=== PATIENT | male | born 1955 | race Caucasian/White ===

== ENCOUNTER 2019-08-14 14:13 | Inpatient (IN) | payer OTHER, SELFPAY ==
[~2019-08-14] VITALS: Ht 162.6 cm; Wt 60.6 kg
[2019-08-14] MEDS ORDERED: NS 1,000 ML IV ONE (14:45)
[2019-08-14 14:54] LABS: HEMATOCRIT 50.1 % (42.0-52.0); HEMOGLOBIN 17.4 g/dl (13.5-17.5); MEAN CORPUSCULAR HEMOGLOBIN 28.9 pg (27.0-33.0); MEAN CORPUSCULAR HGB CONC 34.7 g/dl (32.0-36.5); MEAN CORPUSCULAR VOLUME 83.2 fl (80.0-96.0); PLATELET COUNT, AUTOMATED 141 10^3/uL (150-450); RED BLOOD COUNT 6.02 10^6/uL (4.30-6.10)
--- NOTE | 2019-08-14 15:06 | REP ---
PORTABLE CHEST X-RAY: SINGLE VIEW. HISTORY: Altered mental status. No comparison chest x-ray. FINDINGS: Monitoring electrodes are seen along with oxygen delivery tubing. There is hazy opacity in the left base with elevation of the left hemidiaphragm consistent with left pleural effusion. Atelectasis in the left lower lobe is suspected. Heart size is borderline. The aorta is somewhat tortuous. IMPRESSION: Moderate hazy opacity left base elevated left hemidiaphragm. Suspect left effusion and atelectasis versus infiltrate left lower lobe. Borderline heart size. Electronically Signed by Fernando Leger MD 08/14/2019 03:10 P
--- NOTE | 2019-08-14 15:17 | REP ---
CT BRAIN WITHOUT CONTRAST: HISTORY: Altered mental status. No comparison brain imaging. 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 The bony calvarium is intact. Visualized paranasal sinuses are clear. There is mild vascular calcification in the distal internal carotid arteries. There is no evidence of intracranial hemorrhage. Minimal generalized atrophy is present. There is no evidence of mass, infarction, extra-axial fluid collection, or midline shift. IMPRESSION: Mild diffuse atrophy. Vascular calcification. Otherwise negative. Electronically Signed by Fernando Leger MD 08/14/2019 03:30 P
[2019-08-14] MEDS ORDERED: AZITHROMYCIN INJ 500 MG, VIAL MATE ADAPTER 1 EACH in D5W 250 ML IV ONE (15:30)
[2019-08-14] MEDS ORDERED: cefTRIAXone SOD 1 GM in D5W MINI-BAG PLUS 50 ML IV ONE (15:30)
[2019-08-14 15:35] LABS: EOSINOPHILS 2 % (0-3); LYMPHOCYTES 5 % (16-44); METAMYELOCYTES 3 % (0-0); MONOCYTES 4 % (0-5); NEUTROPHILS 83 % (28-66)
[2019-08-14 15:37] LABS: PLATELET ESTIMATE NORMAL (NORMAL); TOXIC VACUOLATION 1+
[2019-08-14] MEDS: NS 1,000 ML IV SCH ×2 (15:39→21:59)
[2019-08-14 16:42] LABS: ACETAMINOPHEN LEVEL 2.3 UG/ML (10.0-30.0); ALBUMIN 1.8 GM/DL (3.2-5.2); ALT/SGPT 93 U/L (12-78); BILIRUBIN,DIRECT 0.5 MG/DL (0.0-0.2); BLOOD UREA NITROGEN 168 MG/DL (7-18); CALCIUM LEVEL 10.2 MG/DL (8.8-10.2); CARBON DIOXIDE LEVEL 20 MEQ/L (21-32); CHLORIDE LEVEL 102 MEQ/L (98-107); CK-MB VALUE MASS 39.7 NG/ML (<3.6); CPK CREATINE PHOSPHOKINASE 753 U/L (39-308); CREATININE FOR GFR 1.76 MG/DL (0.70-1.30); ETHYL ALCOHOL (ETHANOL) < 0.003 % (0.000-0.010); GLOMERULAR FILTRATION RATE 41.7 (>49); GLUCOSE, FASTING 103 MG/DL (70-100); MB/CK RELATIVE INDEX 5.27 (< OR =4); POTASSIUM SERUM 4.2 MEQ/L (3.5-5.1); SALICYLATE LEVEL 3.3 MG/DL (5.0-30.0); SODIUM LEVEL 137 MEQ/L (136-145); TOTAL PROTEIN 5.8 GM/DL (6.4-8.2); TROPONIN I < 0.02 NG/ML (< 0.10)
[2019-08-14] MEDS ORDERED: DIGOXIN INJ 0.5 MG/2 ML AMP (J1160) IV ONE ×2 (16:45→19:00)
[2019-08-14] MEDS ORDERED: SODIUM CHLORIDE 0.9% 1000ML IV ONE (16:45)
--- NOTE | 2019-08-14 17:48 | HPEPDOC ---
General Date of Admission Aug 14, 2019 at 16:41 Date of Service: Aug 14, 2019 Chief Complaint The patient is a 64-year-old male admitted with a reason for visit of Pneumonia,Atrial Fibrillation With Rapid Ventricul. Source: RN/, EMS notes reviewed Exam Limitations: Clinical conditions Associated Symptoms: Weakness, Dizziness History of Present Illness 64 year old male with no known medical history was found down on the floor by EMS when they had gone to the patient's house for a welfare check. Patient says he fell yesterday and was not able to get up. He says he has been falling and has fallen about 5 times in the last few days. As per EMS notes patient was diagnosed with Flu about 2 weeks ago. He has not been eating for 5 days only able to drink a little. Yesterday he called for shortness of breath did not come to the hospital today EMS went to his house for check up and found him on the ground at about 1330. He has been feeling dizzy and weak and has fallen sometime during the night. He was found to be in Afib with rvr and was brought to the ED. He was awake and was able to answer simple questions and able to f ollow simple commands. EMS felt he had slurred speech. On my interview he was oriented to place and person and able to answer simple questions. However easily getting tired. Says he lives alone and has no family nearby. There is a number for a Deepthi Mccormick in the chart which he says is his cousin but he says does not have much contact with her. When I called the answer it seemed to be disconnected. He has been taking tylenol and ibuprofen for his flu like symptoms. CT head int ED did not reveal any acute events. CXR showed left basal opacity fluid vs infiltrates. WBC up to 34K, elevated lactate and elevated creatinine. EKG with Afib and rvr. Bp 95/55, pulse in 120s. He was admitted for Pneumonia, sepsis and afib with RVR. Home Medications Unable to Obtain Active Prescriptions or Reported Meds Allergies Coded Allergies: No Known Allergies (Unverified , 08/14/19) Past Medical History Medical History ? hepatitis C pateitn denied any past medical history Family History Significant Family History: No pertinent family hx patient does not know Social History * Smoker: current smoker Alcohol: Denies Drugs: denies A-FIB/CHADSVASC A-FIB History Current/History of A-Fib/PAF?: Yes Current PO Anticoag Therapy: No Review of Systems Constitutional: Reports: Weakness, Fatigue, Lethargy Eyes: Denies: Pain, Vision change ENT: Denies: Head Aches, Ear Pain, Dysphagia Skin: Denies: Rash, Lesions, Breakdown Pulmonary: Denies: Dyspnea, Cough Cardiovascular: Reports: Lt Headedness Gastrointestinal: Reports: Other Symptoms (unable to eat for 1 week); Denies: Nausea, Vomiting, Abdominal Pain, Diarrhea Genitourinary: Denies: Dysuria, Frequency, Incontinence, Retention Hematologic: Denies: Bruising, Bleeding Excessively Neurological: Reports: Weakness Physical Examination General Exam: Positive: Cooperative, No Acute Distress, Other (awake but very weak able to talk only a few words) Eye Exam: Positive: PERRLA, Conjunctiva & lids normal, EOMI; Negative: Sclera icteric ENT Exam: Positive: Atraumatic, Mucous membr. moist/pink, Pharynx Normal Neck Exam: Positive: Supple Chest Exam: Positive: Clear to auscultation, Diminished (at the bases); Negative: Rales, Rhonchi, Wheezing Heart Exam: Positive: Tachycardic, Irregular Rhythm, Normal S1, Normal S2, Murmurs Telemetry: Positive: Atrial fibrillation Abdomen Exam: Positive: BS Hypoactive, Soft, Other (left lobe of liver plapable) Extremity Exam: Positive: Cyanosis (of the big toes, cold extremites), Other (not palpable dorsalis pedis); Negative: Clubbing, Edema Skin Exam: Positive: Other skin issue (cold feet with some mottling of the big toes) Vital Signs Vital Signs Date Time Temp Pulse Resp B/P (MAP) Pulse Ox O2 Delivery O2 Flow Rate FiO2 08/14/19 15:12 160 101/71 08/14/19 14:45 95.8 08/14/19 14:36 16 Laboratory Data Labs 24H Laboratory Tests 2 08/14/19 14:27: Lactic Acid Level 5.3*H 08/14/19 14:38: Immature Granulocyte % (Auto) , Neutrophils (%) (Auto) , Nucleated Red Blood Cells % (auto) 1.3H, Neutrophils 83H, Band Neutrophils 3, Lymphocytes (Manual) 5L, Monocytes (Manual) 4, Eosinophils (Manual) 2, Metamyelocytes 3H, Toxic Vacuolation 1+, Platelet Estimate NORMAL 08/14/19 15:36: Anion Gap 15, Glomerular Filtration Rate 41.7L, Calcium Level 10.2, Total Bilirubin 1.0, Direct Bilirubin 0.5H, Aspartate Amino Transf (AST/SGOT) 267H, Alanine Aminotransferase (ALT/SGPT) 93H, Alkaline Phosphatase 614H, Total Creatine Kinase 753H, Creatine Kinase MB 39.7H, Creatine Kinase MB Relative Index 5.27H, Troponin I < 0.02, Total Protein 5.8L, Albumin 1.8L, Albumin/Globulin Ratio 0.45L, Thyroid Stimulating Hormone (TSH) 4.970H, Salicylates Level 3.3L, Acetaminophen Level 2.3L, Ethyl Alcohol Level < 0.003 CBC/BMP Laboratory Tests 08/14/19 14:38 08/14/19 15:36 Assessment/Plan 64 year old male with no known medical history was found down on the floor by EMS when they had gone to the patient's house for a welfare check. Patient says he fell yesterday and was not able to get up. He says he has been falling and has fallen about 5 times in the last few days. As per EMS notes patient was diagnosed with Flu about 2 weeks ago. He has not been eating for 5 days only able to drink a little. Yesterday he called for shortness of breath did not come to the hospital today EMS went to his house for check up and found him on the ground at about 1330. He has been feeling dizzy and weak and has fallen sometime during the night. He was found to be in Afib with rvr and was brought to the ED. CT head in the ED did not reveal any acute events. CXR showed left basal opacity fluid vs infiltrates. WBC up to 34K, elevated lactate and elevated creatinine. EKG with Afib and rvr. Bp 95/55, pulse in 120s. He was admitted for Pneumonia, sepsis and afib with RVR. Sepsis core temp< 96, tachycardia, elevated wbc. with source of infection in lungs. IVF boluses. Lactacidosis duet o dehydration, sepsis continue IVF. Possible Left lower lobe pneumonia will get CT chest ceftriaxone and azithromycin. Hypotension due to afib with rvr, dehydration, sepsis continue IVF resuscitation, control of heart rate. Afib with RVR rate uncontrolled will give digoxin as BP is low will get echo if rate not controlled with dig will give amiodarone and consult cardiology. CECI due to poor oral intake and dehydration continue IVF no nephrotoxic agents patient has been taking ibuprofen at home. Dehydration as seen by disproportionately elevated BUN relative to creatinine continue IVF. I/O. Recent Flu as per history will check resp panel droplet and contact isolation. Transaminitis with elevated alkaline phosphatase could be due to fall and mild rhabdo but he may have a history of hepatitis C will check hepatitis panel, abdominal US. Severe Protein calorie malnutrition has albumin of 1.8 bitemporal wasting, wasting of small muscles of hand. Plan / VTE VTE Prophylaxis Ordered?: Yes CHELY FUNES MD Aug 14, 2019 17:48
[2019-08-14 18:16] LABS: AMPHETAMINES LEVEL URINE NEGATIVE (NEGATIVE); BARBITURATES URINE NEGATIVE (NEGATIVE); BENZODIAZEPINES URINE NEGATIVE (NEGATIVE); CANNABINOIDS URINE NEGATIVE (NEGATIVE); COCAINE METABOLITE URINE NEGATIVE (NEGATIVE); METHADONE URINE NEGATIVE (NEGATIVE); OPIATES URINE NEGATIVE (NEGATIVE); PHENCYCLIDINE URINE NEGATIVE (NEGATIVE)
[2019-08-14 18:28] LABS: ABG BASE EXCESS -7.1 (-2.0-2.0); ABG HCO3 14.9 MEQ/L (22.0-26.0); ABG O2 SATURATION 96.2 % (95.0-99.0); ABG PARTIAL PRESSURE CO2 22.9 mmHg (35.0-45.0); ABG PARTIAL PRESSURE O2 86.3 mmHg (75.0-100.0); ABG STANDARD HCO3 18.8 MEQ/L (22.0-26.0); ABG TOTAL CO2 15.6 MEQ/L (23.0-31.0); ABG pH (ARTERIAL) 7.431 UNITS (7.350-7.450)
[2019-08-14] MEDS ORDERED: MEROPENEM INJ 1 GM in IV 1 EA IV SCH (19:00)
--- NOTE | 2019-08-14 19:23 | ECGEPIP ---
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
--- NOTE | 2019-08-14 19:58 | REPVR ---
PROCEDURE INFORMATION: Exam: CT Chest Without Contrast Exam date and time: 08/14/2019 7:48 PM Age: 64 years old Clinical indication: Chest pain; Additional info: Pneumonia TECHNIQUE: Imaging protocol: Computed tomography of the chest without contrast. 3D rendering: MIP and/or 3D reconstructed images were created by the technologist. Radiation optimization: All CT scans at this facility use at least one of these dose optimization techniques: automated exposure control; mA and/or kV adjustment per patient size (includes targeted exams where dose is matched to clinical indication); or iterative reconstruction. COMPARISON: NE PORTABLE CHEST X-RAY 08/14/2019 2:33 PM FINDINGS: Lungs: Interstitial prominence. There is consolidation in the left lower lobe with air bronchogram. Pleural space: There is a large freely layering left pleural effusion. There is a minimal right pleural effusion. Heart: No cardiomegaly or pericardial effusion. Aorta: No aneurysmal dilatation of thoracic aorta. Minimal atherosclerosis. Lymph nodes: Due to lack of intravenous contrast and patient's lack of internal body fat evaluation for lymphadenopathy is limited. Liver: There may be a low dense lesion within the left hepatic lobe however is poorly assessed on this noncontrast study.The kidneys are normal. Pancreas: The pancreas is normal. Spleen: The spleen is normal. Adrenals: Prominence of both adrenal glands. Intraperitoneal space: Ascites. Bones/joints: Skeletal degeneration. Soft tissues: Unremarkable. IMPRESSION: There is consolidation left lower lobe with air bronchogram which may be due to pneumonia. There is a large left pleural effusion. A mass and/or subsegmental atelectasis in the left lower lobe cannot be excluded. There may be a lesion in the left lobe of the liver. Ascites is present. Electronically signed by: Perla Watters On 08/14/2019 19:58:41 PM
[2019-08-14 23:20] VITALS: BP 112/62
[2019-08-14] MEDS ORDERED: VANCOMYCIN HCL 1,000 MG, VIAL MATE ADAPTER 1 EACH in D5W 250 ML IV ONE (23:30)
[2019-08-15] MEDS: NS 1,000 ML IV SCH ×2 (03:45→14:08)
[2019-08-15 04:00] VITALS: BP 106/65
[2019-08-15 05:07] LABS: HEMATOCRIT 44.3 % (42.0-52.0); HEMOGLOBIN 15.3 g/dl (13.5-17.5); MEAN CORPUSCULAR HEMOGLOBIN 28.4 pg (27.0-33.0); MEAN CORPUSCULAR HGB CONC 34.5 g/dl (32.0-36.5); MEAN CORPUSCULAR VOLUME 82.3 fl (80.0-96.0); PLATELET COUNT, AUTOMATED 126 10^3/uL (150-450); RED BLOOD COUNT 5.38 10^6/uL (4.30-6.10); WHITE BLOOD COUNT 29.5 10^3/uL (4.0-10.0)
[2019-08-15 05:31] LABS: CREATININE FOR GFR 1.56 MG/DL (0.70-1.30); GLOMERULAR FILTRATION RATE 47.9 (>49); POTASSIUM SERUM 4.3 MEQ/L (3.5-5.1)
[2019-08-15 05:34] LABS: EOSINOPHILS 2 % (0-3); LYMPHOCYTES 3 % (16-44); METAMYELOCYTES 4 % (0-0); MONOCYTES 2 % (0-5); NEUTROPHILS 77 % (28-66); PLATELET ESTIMATE NORMAL (NORMAL)
[2019-08-15 07:40] VITALS: BP 128/76
[2019-08-15] MEDS: GASTROGRAFIN SOLUTION 30ML PO SCH ×2 (07:51→08:49)
[2019-08-15] MEDS ORDERED: ENOXAPARIN 40MG/0.4ML SYRINGE (J1650 PER 10MG) SC SCH (09:00)
[2019-08-15] MEDS ORDERED: VANCOMYCIN HCL 1,000 MG, VIAL MATE ADAPTER 1 EACH in D5W 250 ML IV SCH (09:00)
[2019-08-15] MEDS ORDERED: AZITHROMYCIN 250MG TABLET PO SCH (09:00)
--- NOTE | 2019-08-15 10:07 | REP ---
REASON: Possible liver mass. No prior abdominal or pelvic CTs for comparison. Prior CT of the chest obtained yesterday showed ascites in the imaged upper abdomen and the large left pleural effusion. The lung bases are unchanged. Note is again made of the large left pleural effusion with probable compressive atelectatic change in the left lower lobe. As mentioned in the prior chest CT report, pneumonia and/or mass lesion cannot be ruled out. There is a moderate amount of ascites. There is a micronodular hepatic surface. There is an abnormal caudate to left lobe of the liver ratio. There is pericholecystic fluid consistent with ascites. No gross mass is seen, however, intravenous contrast was withheld and I cannot rule out a mass particularly in the left lobe of the liver. The spleen and pancreas have an unremarkable appearance although seen in a limited fashion. There is bulky paraaortic adenopathy and there is adenopathy throughout the small bowel mesentery. There is bilateral circumferential adrenal gland thickening. There is no evidence of a gross renal mass or hydronephrosis. There is no evidence of intestinal obstruction. CT PELVIS: There is free fluid in the pelvis. There is no evidence of free air. There is urinary bladder distention. There is no evidence of gross pelvic adenopathy. Bone window technique throughout the examination shows the osseous structures to be within normal limits for the patient's age. IMPRESSION: 1. Lung base findings as described above, not significantly changed from yesterday. 2. Evidence to suggest cirrhosis of the liver with other liver findings as described above. If a liver mass is of clinical concern then I would suggest either a contrast enhanced examination or a liver MRI. 3. Moderate ascites. 4. Intra-abdominal and retroperitoneal adenopathy as described above. The findings suggest an infiltrative process such as lymphoma or leukemia. Certainly, other etiologies exist. 5. Other findings as described above. Electronically Signed by Andres Gibbs DO 08/15/2019 11:10 A
[2019-08-15] MEDS: MEROPENEM INJ 1 GM in IV 1 EA IV SCH ×2 (10:15→22:45)
[2019-08-15 12:34] VITALS: BP 107/42
[2019-08-15 16:00] VITALS: BP 110/44
[2019-08-15] MEDS ORDERED: cefTRIAXone SOD 2 GM in D5W MINI-BAG PLUS 50 ML IV SCH (16:00)
--- NOTE | 2019-08-15 18:44 | IPNPDOC ---
Subjective Date Seen The patient was seen on 08/15/19. Subjective Chief Complaint/HPI Continues to be very weak and tired discussed about thoracocentesis understands but wants to think about it. Has good oral fluid intake but not much solid intake. Having acute urinary retention Objective Physical Examination General Exam: Positive: Alert, Cooperative, No Acute Distress, Other ( very weak able to talk only a few words) Eye Exam: Positive: PERRLA, Conjunctiva & lids normal, EOMI; Negative: Sclera icteric ENT Exam: Positive: Atraumatic, Mucous membr. moist/pink, Pharynx Normal Neck Exam: Positive: Supple Chest Exam: Positive: Clear to auscultation, Diminished (at the bases); Negative: Rales, Rhonchi, Wheezing Heart Exam: Positive: Tachycardic, Irregular Rhythm, Normal S1, Normal S2, Murmurs Telemetry: Positive: Atrial fibrillation Abdomen Exam: Positive: BS Hypoactive, Soft, Other (left lobe of liver plapable) Extremity Exam: Negative: Clubbing, Edema Psych Exam: Positive: Oriented x 3 Assessment /Plan Assessment 64 year old male with PMH of hypertension, hyothyroid, hepatits c treated in 2004 and 2011, cirrhosis of liver last seen by Dr Collins in 2018 then did not go for any follow up was found down on the floor by EMS when they had gone to the patient's house for a welfare check. Patient says he fell yesterday and was not able to get up. He says he has been falling and has fallen about 5 times in the last few days. As per EMS notes patient was diagnosed with Flu about 2 weeks ago. He has not been eating for 5 days only able to drink a little. Yesterday he called for shortness of breath did not come to the hospital today EMS went to his house for check up and found him on the ground at about 1330. He has been feeling dizzy and weak and has fallen sometime during the night. He was found to be in Afib with rvr and was brought to the ED. CT head in the ED did not reveal any acute events. CXR showed left basal opacity fluid vs infiltrates. WBC up to 34K, elevated lactate and elevated creatinine. EKG with Afib and rvr. Bp 95/55, pulse in 120s. He was admitted for Pneumonia, sepsis and afib with RVR. Sepsis core temp< 96, tachycardia, elevated wbc. with source of infection in lungs. continue meropenem MRSA pcr neg Lactacidosis duet o dehydration, sepsis, cirrhosis. continue IVF. Possible Left lower lobe pneumonia with pleural effusion will schedule to pleural tap. Hypotension due to afib with rvr, dehydration, sepsis now improved. Paroxysmal Afib with RVR and intermittent A flutter. Now in sinus rhythm will get echo will discuss with anticoagulation. will not start now as will need procedures. CECI due to poor oral intake and dehydration possible obstructive uropathy had 750 cc out on placement of narayanan. continue IVF no nephrotoxic agents patient has been taking ibuprofen at home. Dehydration as seen by disproportionately elevated BUN relative to creatinine, elevated HB continue IVF. I/O. Acute urinary retention with overflow incontinence narayanan placement produced 750 cc will continue narayanan cath Recent Flu as per history patient told me he had a teleconferance with a doctor and was told he had the flu. He had called because he was falling for the past 2 weeks resp panel neg droplet isolation. Transaminitis with elevated alkaline phosphatase could be due to fall and mild rhabdo cirrhosis of liver with h/o hepatitis C CT abdomen shows ascites and micronodular liver a with prominent left lobe. mass could not be seen in this non contrast study. Decompensated Cirrhosis of liver with ascites, severe hypoalbuminemia, thrombocytopenia. from hepatitis C Hepatitis C treated in 2004 and 2012 In 2011 he was treated at [facility] with interferon and ribavarin for 1.5 years and was told he was cured EX IV drug user Severe Protein calorie malnutrition has albumin of 1.8 bitemporal wasting, wasting of small muscles of hand. Plan/VTE VTE Prophylaxis Ordered?: Yes VS, I&O, 24H, Fishbone Vital Signs/I&O Vital Signs Date Time Temp Pulse Resp B/P (MAP) Pulse Ox O2 Delivery O2 Flow Rate FiO2 08/15/19 16:00 97.5 104 19 110/44 (66) 96 Room Air I&O- Last 24 Hours up to 6 AM 08/15/19 06:00 Intake Total 4410 ml Output Total 325 ml Balance 4085 ml Laboratory Data 24H LABS Laboratory Tests 2 08/14/19 20:52: Lactic Acid Followup at 4 Hours 3.8*H 08/15/19 00:31: Methicillin-Resist S.aureus DNA PCR NOT DETECTED 08/15/19 04:57: Immature Granulocyte % (Auto) , Neutrophils (%) (Auto) , Nucleated Red Blood Cells % (auto) 1.3H, Neutrophils 77H, Band Neutrophils 12H, Lymphocytes (Manual) 3L, Monocytes (Manual) 2, Eosinophils (Manual) 2, Metamyelocytes 4H, Red Blood Cell Morphology NORMAL, Platelet Estimate NORMAL, Anion Gap 13, Glomerular Filtration Rate 47.9L, Calcium Level 10.0, Lactate Dehydrogenase 1325H 08/15/19 08:34: Ammonia 57H 08/15/19 11:32: Bedside Glucose (Misc Panel) 150H CBC/BMP Laboratory Tests 08/15/19 04:57 Microbiology Microbiology 08/14/19 Respiratory Virus Panel (PCR) (JUNIOR) - Final, Complete CHELY FUNES MD Aug 15, 2019 18:44
[2019-08-15] MEDS ORDERED: SLF 3 ML SYR IV PRN (19:00)
[2019-08-15 20:00] VITALS: BP 109/61
[2019-08-15] MEDS: SLF 3 ML SYR IV SCH (22:45)
[2019-08-16] VITALS: BP 102/64
[2019-08-16 04:00] VITALS: BP 120/65
[2019-08-16 04:58] LABS: HEMATOCRIT 48.1 % (42.0-52.0); HEMOGLOBIN 16.7 g/dl (13.5-17.5); MEAN CORPUSCULAR HEMOGLOBIN 28.9 pg (27.0-33.0); MEAN CORPUSCULAR HGB CONC 34.7 g/dl (32.0-36.5); MEAN CORPUSCULAR VOLUME 83.4 fl (80.0-96.0); PLATELET COUNT, AUTOMATED 123 10^3/uL (150-450); RED BLOOD COUNT 5.77 10^6/uL (4.30-6.10)
[2019-08-16 05:00] LABS: WHITE BLOOD COUNT 30.6 10^3/uL (4.0-10.0)
[2019-08-16 05:18] LABS: EOSINOPHILS 2 % (0-3); LYMPHOCYTES 6 % (16-44); METAMYELOCYTES 3 % (0-0); MONOCYTES 2 % (0-5); NEUTROPHILS 84 % (28-66)
[2019-08-16 05:19] LABS: ANISOCYTOSIS 1+; PLATELET ESTIMATE NORMAL (NORMAL)
[2019-08-16 05:20] LABS: POLYCHROMASIA 1+
[2019-08-16 05:37] LABS: CALCIUM LEVEL 10.3 MG/DL (8.8-10.2); CREATININE FOR GFR 1.6 MG/DL (0.70-1.30); GLOMERULAR FILTRATION RATE 46.6 (>49); POTASSIUM SERUM 4.3 MEQ/L (3.5-5.1)
[2019-08-16] MEDS: SLF 3 ML SYR IV SCH ×3 (05:55→22:23)
--- NOTE | 2019-08-16 06:18 | ECHO ---
DATE OF PROCEDURE: 08/15/2019 DATE OF : 1955 AGE: 64 GENDER: Male. HEIGHT: 64 inches WEIGHT: 125 pounds BODY SURFACE AREA: 1.61 meters squared INPATIENT: PCU - Room 3216 REFERRING PHYSICIAN: Dr. Lexi Mora INDICATION: Cardiac dysrhythmias. MEASUREMENTS 2-D Measurements: RV: 3.0 cm LV: 3.6 cm Septum: 1.0 cm Posterior wall: 1.0 cm LVEF: 65% Doppler Measurements: AV: 1.4 m/s LVOT: 0.97 m/s MV - E 51 A - Early mitral deceleration time: 127 ms PV: 1.1 m/s Pulmonary artery acceleration time: 109 ms PASP: 30 mmHg IVC: 1.5 cm COMMENTS: Underlying atrial fibrillation with somewhat rapid ventricular response. No intraventricular conduction disturbance. Technically difficult study in light of the patient's chest configuration. Very limited images were possible and only from the subcostal projection. The left ventricle appeared to be normal in size with normal wall thickness and normal wall motion allowing for his rapid ventricular response to atrial fibrillation. Could not visualize his left atrium well to make precise a measurement, but it did not appear to be enlarged. The right ventricle appeared to be of normal size with normal wall motion and the right atrium also did not appear to be enlarged. His inferior vena cava was of normal size with adequate respiratory collapse. Could not visualize his valvular structures well, but the mitral and tricuspid valves did not appear to be significantly abnormal. Color flow Doppler showed very mild to mild tricuspid and no more than trace mitral insufficiency. No pericardial effusion. If further detail is required, would recommend a transesophageal echocardiogram.
[2019-08-16 08:00] VITALS: BP 82/60
[2019-08-16] MEDS ORDERED: AMIODARONE HCL 150 MG in IV 1 EA IV STA (08:28)
[2019-08-16] MEDS ORDERED: DIGOXIN INJ 0.5 MG/2 ML AMP (J1160) IV ONE (08:30)
[2019-08-16] MEDS ORDERED: AMIODARONE HCL 150 MG in IV 1 EA IV ONE (09:00)
[2019-08-16] MEDS: MEROPENEM INJ 1 GM in IV 1 EA IV SCH ×2 (09:52→22:23)
[2019-08-16] MEDS: NS 1,000 ML IV SCH ×2 (09:52→20:29)
[2019-08-16 11:32] LABS: HEPATITIS B CORE ANTIBODY IGM NEGATIVE (NEGATIVE); HEPATITIS B SURFACE ANTIGEN NEGATIVE (NEGATIVE); HEPATITIS C VIRUS ABY INDEX > 11.0 INDEX (<0.8)
[2019-08-16 12:00] VITALS: BP 114/57
[2019-08-16] MEDS: AMIODARONE 200 MG TAB (PACERONE) PO SCH ×3 (13:39→23:27)
[2019-08-16 16:00] VITALS: BP 126/61
[2019-08-16 20:00] VITALS: BP 119/70
[2019-08-17] VITALS (26 sets, daily range): BP systolic 82–119; BP diastolic 50–69
[2019-08-17] MEDS ORDERED: METOPROLOL TART 25 MG TABLET PO ONE (01:00)
[2019-08-17] MEDS ORDERED: METOPROLOL 5 MG/5 ML VIAL IV SCH (01:00)
[2019-08-17] MEDS ORDERED: DIGOXIN INJ 0.5 MG/2 ML AMP (J1160) IV ONE (02:00)
[2019-08-17] MEDS: AMIODARONE 200 MG TAB (PACERONE) PO SCH ×3 (05:14→17:53)
[2019-08-17] MEDS: SLF 3 ML SYR IV SCH ×3 (05:15→22:00)
[2019-08-17] MEDS: NS 1,000 ML IV SCH ×2 (07:09→15:40)
[2019-08-17] MEDS: DOXYCYCLINE HYCLATE 100 MG in D5W MINI-BAG PLUS 100 ML IV SCH ×2 (08:07→23:01)
[2019-08-17 08:17] LABS: HEMATOCRIT 48.8 % (42.0-52.0); HEMOGLOBIN 16.6 g/dl (13.5-17.5); MEAN CORPUSCULAR HEMOGLOBIN 28.7 pg (27.0-33.0); MEAN CORPUSCULAR VOLUME 84.3 fl (80.0-96.0); PLATELET COUNT, AUTOMATED 125 10^3/uL (150-450); RED BLOOD COUNT 5.79 10^6/uL (4.30-6.10)
[2019-08-17 08:32] LABS: EOSINOPHILS 5 % (0-3); LYMPHOCYTES 3 % (16-44); METAMYELOCYTES 3 % (0-0); MONOCYTES 2 % (0-5); NEUTROPHILS 82 % (28-66)
[2019-08-17 08:33] LABS: PLATELET ESTIMATE DECREASED (NORMAL)
[2019-08-17 08:35] LABS: CALCIUM LEVEL 9.9 MG/DL (8.8-10.2); CREATININE FOR GFR 1.9 MG/DL (0.70-1.30); GLOMERULAR FILTRATION RATE 38.2 (>49); POTASSIUM SERUM 4.9 MEQ/L (3.5-5.1)
[2019-08-17] MEDS: MEROPENEM INJ 1 GM in IV 1 EA IV SCH (11:56)
--- NOTE | 2019-08-17 12:33 | IPNPDOC ---
Text Note Date of Service The patient was seen on 08/17/19. NOTE Subjective: Patient continues to be confused, but follows commands. He is not oriented in place. Overnight patient developed atrial fibrillation with RVR. Objective: General: Cachectic, ill looking male VITAL SIGNS: Please see below. HEENT: NCAT, icterus, IMTIAZ NECK: supple, no JVD CARDIOVASCULAR EXAMINATION: NS1S2 RESPIRATORY EXAMINATION: mild rhonchi bilaterally, diminished lung sounds over left lung ABDOMINAL EXAMINATION: Distended, nontender EXTREMITIES: no cyanosis, clubbing, edema SKIN: Papular rash over his chest NEUROLOGICAL EXAMINATION: Nonfocal, moves 4 limbs, no nuchal rigidity Assessment and plan: Patient is 64 years old male with past history of hypertension, hypothyroid, hepatitis C treated in 2003 and 2011, cirrhosis of the liver presented hospital with sepsis and altered mental status. Patient was found to have left lung pleural effusion, moderate ascites and leukocytosis. Also patient developed atrial fibrillation with rapid ventricular rate, amiodarone started. Sepsis Most likely secondary to pneumonia versus empyema versus spontaneous bacterial peritonitis. Patient has persistent leukocytosis. High possibility of empyema or SBP. CT abdomen and pelvis showed moderate ascites. Intra-abdominal and retroperitoneal adenopathy. The findings suggest an infiltrative process such as lymphoma or leukemia. CT chest shows consolidation left lower lobe with air bronchogram which may be due to pneumonia. There is a large left pleural effusion. A mass and/or subsegmental atelectasis in the left lower lobe cannot be excluded. There may be a lesion in the left lobe of the liver. I will discuss with Dr. Richards pleuracentesis Patient will need paracentesis on Monday Continue meropenem, I added doxycycline to cover atypicals Blood culture Lactic acidosis Secondary to sepsis Large left pleural effusion Could be secondary to empyema or cirrhosis or malignancy Will discuss with Dr. Richards pleuracentesis Atrial fibrillation with rapid ventricular rate Dr. Hannah recommended to start amiodarone Heart rate is under control We will hold anticoagulation due to possible paracentesis and pleuracentesis Hypotension Resolved CECI Most likely patient developed hepatorenal syndrome secondary to liver cirrhosis. Patient has refractory ascites. I will discuss with runner man albumin infusion and octreotide to improve kidney perfusion Dehydration Patient intramuscular depleted secondary to cirrhosis Will continue gentle IV hydration Ascites Secondary to cirrhosis versus malignancy Patient will need paracentesis There is possibility for spontaneous bacterial peritonitis We will continue treatment with antibiotics We will check alpha-fetoprotein, CEA, CA 19-9 Intraperitoneal lymphadenopathy Be secondary to malignancy versus infection Patient will need biopsy of lymph node LDH and alkaline phosphatase significantly elevated Elevated liver enzymes Multifactorial, due to liver cirrhosis, malignancy, infection Cirrhosis Secondary to hepatitis C and EtOH abuse See above Severe Protein calorie malnutrition Poor intake, hypoalbuminemia bitemporal wasting, wasting of small muscles of hand. Papular rash Most likely patient developed molluscum contagiosum secondary to immunocompromised status I will check patient for HIV given history of IV drug abuse Metabolic encephalopathy Multifactorial, secondary to sepsis, possible hepatorenal syndrome Ammonia level is elevated Lactulose VS,Fishbone, I+O VS, Fishbone, I+O Laboratory Tests 08/17/19 07:58 Vital Signs Date Time Temp Pulse Resp B/P (MAP) Pulse Ox O2 Delivery O2 Flow Rate FiO2 08/17/19 07:59 96.7 90 20 108/67 (81) 93 Room Air I&O- Last 24 Hours up to 6 AM 08/17/19 06:00 Intake Total 2038 ml Output Total 600 ml Balance 1438 ml DIETER HOLGUIN DO Aug 17, 2019 12:33
[2019-08-17] MEDS: LACTULOSE 20 GM/30 ML SYRUP UD PO SCH (13:29)
[2019-08-17] MEDS ORDERED: flumazeniL 0.5 MG/5 ML VIAL As Ordered ONE (14:04)
[2019-08-17] MEDS ORDERED: MIDAZOLAM INJ 2MG/2ML VIAL (J2250 PER 1MG) As Ordered ONE (14:04)
[2019-08-17] MEDS ORDERED: LIDOCAINE 1% MDV 20ML VIAL As Ordered ONE (14:05)
[2019-08-17 14:19] LABS: ALBUMIN 1.5 GM/DL (3.2-5.2); BILIRUBIN,TOTAL 0.6 MG/DL (0.2-1.0); CALCIUM LEVEL 10.2 MG/DL (8.8-10.2); CREATININE FOR GFR 1.94 MG/DL (0.70-1.30); GLOMERULAR FILTRATION RATE 37.3 (>49); POTASSIUM SERUM 4.9 MEQ/L (3.5-5.1); TOTAL PROTEIN 5.5 GM/DL (6.4-8.2)
[2019-08-17] MEDS ORDERED: flumazeniL 0.5 MG/5 ML VIAL IV ONE (15:00)
[2019-08-17] MEDS ORDERED: MIDAZOLAM INJ 2MG/2ML VIAL (J2250 PER 1MG) IV ONE (15:00)
[2019-08-17] MEDS ORDERED: LIDOCAINE 1% MDV 20ML VIAL IM ONE (15:00)
--- NOTE | 2019-08-17 15:07 | REP ---
REASON: Status post chest tube insertion. COMPARISON: Preprocedural exam of 08/14/2019. There is a left-sided thoracotomy tube in place. There is a minimal discoid opacity in the left midlung zone with a few minimal left retrocardiac streaky opacities. The lung odonnell are otherwise clear. The heart is not enlarged, and the pleural angles are sharp. There is no evidence of a pneumothorax. The osseous structures are stable and intact. IMPRESSION: Likely subsegmental atelectatic changes left lung, as described above. Electronically Signed by Andres Gibbs DO 08/17/2019 03:14 P
--- NOTE | 2019-08-17 15:34 | CR ---
DATE OF CONSULTATION: 08/17/2019 The patient is seen at the urgent request of Dr. Sharif of the hospitalist service for a pleural effusion. I have tried to interview the patient. He is essentially nonverbal and noncommunicative. 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 He can give me no history at all. From what history there is, I gleaned from the chart. HISTORY OF PRESENT ILLNESS: The patient is a 64-year-old white male with a past medical history of hypertension, hypothyroidism, hepatitis C treated in both 2003 and 2011 and cirrhosis of the liver. He was last seen by his primary care provider, Dr. Collins, in 2018. Evidently, emergency medical services (EMS) went to his home for a "welfare check." He was found on the floor. History taken at the time of admission states that he was feeling dizzy and weak and had fell throughout the night prior to admission. He evidently called emergency medical services (EMS) for shortness of breath but did not come to the hospital the day before he was found. He was found to be in atrial fibrillation with rapid ventricular response by EMS and brought to the emergency room. CT of his head did not reveal any acute injury. His white count on admission was 34,000 and decreased to 30,000 yesterday and 25,000 today. He is on meropenem as an antibiotic, along with amiodarone for his atrial fibrillation. PAST MEDICAL HISTORY: As per the history of present illness. MEDICATIONS: At home: None listed. ALLERGIES: None known. SURGERIES: None known. OCCUPATIONAL HISTORY: Unknown. EXPOSURES: Unknown. HABITS: Unknown, although there is mention of alcohol abuse and is a current smoker. FAMILY HISTORY: Not obtainable. REVIEW OF SYSTEMS: Not obtainable. PHYSICAL EXAMINATION: A cachectic, white male, noncommunicative, looking very weak and chronically ill. He does not seem to be in respiratory distress. VITAL SIGNS: Temperature is 96.8 with a heart rate of 90 to 118 in atrial fibrillation, blood pressure 113/59, respiratory rate of 20 without the use of accessory muscles, who is 93% saturated on room air. HEAD: Normocephalic. EYES: Sclerae yellow. Pupils are equal, round and reactive to light. Extraocular movements are intact. NOSE: Without deformity. MOUTH: Shows mucous membranes to be dry and pink. I do not note any blistering in his mouth. He has his own teeth, which look to be in poor repair. NECK: Supple. There is no jugular venous distention (JVD). No subcutaneous emphysema. Trachea is midline. There is no lymphadenopathy. LUNGS: Decreased breath sounds on the left side. It is a difficult lung examination as he is barely able to sit up. I could not percuss him. CARDIAC: No murmurs, clicks, gallops or rubs. His point of maximum impulse (PMI) is in the fifth intercostal space in the mid clavicular line. S1, S2 normal. ABDOMEN: Soft, nontender. Bowel sounds positive. There is no hepatomegaly. I was not able to test for costovertebral angle tenderness. EXTREMITIES: No pretibial edema. No calf tenderness. No differential swelling of the upper extremities. SKIN: Covered with a blistering rash, which looks papular but does not look as if there is pus underneath the blisters. They are evenly distributed throughout his body on his trunk, extremities, head and neck. NEUROLOGIC: II through XII grossly intact. Gross motor and gross sensation intact, although he is very weak. PSYCHIATRIC: He is noncommunicative. He is only oriented to person by giving me his first name, but not to place or time. LABORATORY DATA: His white count today is 25.0 with a hemoglobin and hematocrit of 16 and 48.8. Platelet count is 125. Differential shows 82% neutrophils, 5% bands, 3% lymphocytes, 2% monocytes, 5 eosinophils, along with 3 metamyelocytes. He had 1+ toxic granulations on admission of 148. Electrolytes today show a total CO2 of 18 with a BUN and creatinine of 188 and 1.94 and a glucose of 123. Lactic acid this morning is 3.8 with a calcium of 10.2 and albumin of 1.5. Corrected calcium for albumin is 12.2, making him hypercalcemic. His AST and ALT are 372 and 177, respectively with an alkaline phosphatase of 1057. His alcohol level was canceled on admission for some reason. Blood gases on 08/14/2019 showed pH of 7.474, pCO2 of 22, pO2 of 86, base excess of -7. Urinalysis showed negative leukocyte esterase with only 1 white cell per high powered field. HIV antibody is pending. His hepatitis antibody is greater than 11, which is positive. His chest x-ray done on admission shows a diffuse haze over the left hemithorax. CT scan done following the chest x-ray confirms a large pleural effusion. There is some basilar atelectasis on the right side. There is lung compression of the lower lobe. He has significant ascites, both right and left sides. More impressively, there is a hypodense lesion in the left lobe of the liver, it is a subtle finding but nonetheless notable. His right adrenal has a normal configuration, although a little hypertrophied, as does his left adrenal. His liver edge is a bit lumpy/bumpy, consistent with possible cirrhosis. IMPRESSION: 1. Left pleural effusion. 2. Probable liver cirrhosis. 3. Blistering rash, perhaps pemphigus. 4. History of hepatitis C. 5. Sepsis with lactic acidosis. 6. Acute kidney injury and renal failure. 7. Leukocytosis, unknown origin, maybe empyema, but I have my doubts. 8. Prior alcohol abuse. 9. Tobacco abuse. 10. Syncope by history. 11. Hypothyroidism by history. 12. Hypertension. PLAN/DISCUSSION: I will immediately drain his chest. The patient is noncommunicative and cannot answer any of my questions and I will do this without consent as I consider it an urgent procedure. There is no known family. We will send specimens for requisite cytologies, hematologies, bacteriologies, and chemistries. I am concerned about the rash. This could represent pemphigus. I have spoken to Dr. Sharif, his hospitalist physician, and they are ruling out AIDS, but he thinks that it could also be molluscum contagiosum. Until we known exactly what this rash represents, I will place him on skin isolation precautions. We cannot obtain a sexual history from him.
[2019-08-17 15:55] LABS: PH BODY FLUID 7.554 UNITS (NOT ESTABLISHED); SOURCE, BODY FLUID pH PLEURAL
[2019-08-17] MEDS ORDERED: NS 1,000 ML IV ONE ×4 (16:00→22:30)
[2019-08-17] MEDS: MIDODRINE 5 MG TAB PO SCH (16:05)
[2019-08-17 16:14] LABS: APPEARANCE, BODY FLUID HAZY (CLEAR); PLEURAL FL COLOR YELLOW (COLORLESS); SOURCE, BODY FLUID PLEURAL
[2019-08-17 16:38] LABS: AMYLASE, BODY FLUID 18 U/L (NOT ESTABLISHED); CHOLESTEROL, BODY FLUID < 50 MG/DL (NOT ESTABLISHED); LDH, BODY FLUID 271 U/L (NOT ESTABLISHED); SOURCE, BODY FLUID ALBUMIN PLEURAL; SOURCE, BODY FLUID AMYLASE PLEURAL; SOURCE, BODY FLUID CHOL PLEURAL; SOURCE, BODY FLUID GLUCOSE PLEURAL; SOURCE, BODY FLUID LDH PLEURAL; SOURCE, BODY FLUID TOT PROTEIN PLEURAL; SOURCE, BODY FLUID TRIG PLEURAL; TOTAL PROTEIN, BODY FLUID 3.1 G/DL (NOT ESTABLISHED); TRIGLYCERIDE, BODY FLUID 45 MG/DL (NOT ESTABLISHED)
--- NOTE | 2019-08-17 19:29 | CR ---
DATE OF CONSULTATION: 08/17/2019 REQUESTING PHYSICIAN: Dr. Shashank Sharif. CONSULTING PHYSICIAN: Dr. Salinas. REASON FOR CONSULTATION: Management of acute renal failure. CHIEF COMPLAINT: The patient was brought by Emergency Medical Services on 08/14/2019 because he was found unconscious on the floor. NOTE: History was obtained from the medical team and from patient's chart. The patient himself is obtunded and unable to provide any reliable history. HISTORY OF PRESENT ILLNESS: Mr. Jass Mccormick is a 64-year-old male with a past medical history of hepatitis C virus (HCV) cirrhosis. He was brought to the emergency room (ER) by EMS. Apparently, the patient's family friend called EMS for as welfare check and when they went to his home, he was found on the floor. On arrival to the emergency room after initial resuscitation, the patient reported that he was feeling dizzy and weak and he had fallen to the floor and he was unable to get up. Later investigation showed that the patient also had a large left-sided pleural effusion. He also got a CAT scan of the abdomen done, which showed cirrhosis of the liver with a possible mass in the left lobe of the liver. He was also found to have intra-abdominal and retroperitoneal adenopathy. He had lactic acidosis. His creatinine on arrival was 1.7, with a BUN of 168. Patient's renal function did not show any signs of improvement. Nephrology service was called for further help in the management of this patient. I saw and evaluated the patient at the bedside today afternoon. He had already gotten the left sided thoracentesis done by CT surgery; 1600 mL of fluid was removed and now he has a pigtail catheter on the left side attached to suctioning and a water seal. The patient was hypotensive. He was given normal saline bolus and he was started on intravenous (IV) normal saline. When I saw him, he was very obtunded and he was unable to follow commands or provide any history. PAST MEDICAL HISTORY: 1. Hepatitis C virus infection. Apparently he was treated twice. 2. Cirrhosis. PAST SURGICAL HISTORY: The patient just had left sided thoracentesis done today. ALLERGIES: No known drug allergies. FAMILY HISTORY: Not known. SOCIAL HISTORY: The patient lives at home. He lives alone. He is an active smoker. He has history of alcohol abuse. No sexual history is available at this time. REVIEW OF SYSTEMS: The patient is unable to provide any review of systems to me. PHYSICAL EXAMINATION: GENERAL: The patient is very drowsy and obtunded, laying in the bed, very encephalopathic. HEAD AND NECK EXAM: Patient is emaciated and weak with temporal wasting. Mucous membranes are moist. Neck is supple. There is no jugular venous distention (JVD). CARDIOVASCULAR: S1, S2. Regular rate. No edema of the bilateral lower extremities. RESPIRATORY: Decreased breath sounds at the bases, worse on the left side. He has a left-sided pleural catheter. ABDOMEN: Soft. Mild amount of ascites is noted. He has enlarged nodular liver, which is slightly tender to deep palpation. GENITOURINARY: Patient has an indwelling Blanchard catheter. A very small amount of dark urine is found in the Blanchard bag. MUSCULOSKELETAL: No clubbing or cyanosis. 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 He is moving upper extremities, but he does not follow commands and he is wearing mittens on both hands. SKIN: The patient has blistering papular lesions all over the skin, which are whitish in color. LABORATORY REVIEW: Complete blood count (CBC) showed a WBC 25, hemoglobin 16.6, platelets of 125. Basic metabolic panel (BMP) showed sodium 144, potassium 4.9, chloride 114, bicarbonate 18, BUN 188, creatinine 1.9, glucose 123, lactic acid is 3.5. Total bilirubin on 08/14/2019 was 1, AST 372, ALT is 177, alkaline phosphatase is 1057 LDH Is 1163, albumin is 1.5. TOXICOLOGY: Vancomycin trough is 5. MICROBIOLOGY: Fluid cultures are pending. IMAGING STUDIES: CAT scan of the abdomen, pelvis was done on 08/15/2019, which showed cirrhosis of the liver, questionable mass in the left lower lobe of the liver, but there was no contrast given, so they could not define the image well, moderate amount of ascites. There was intra-abdominal and retroperitoneal lymphadenopathy. CT chest done on 08/15/2019 showed a large left-sided pleural effusion with left lower lobe atelectasis. CURRENT INPATIENT MEDICATIONS: Patient is currently on: - doxycycline 100 mg IV every 12 hours - meropenem 1 gram intravenous (IV) every 12 hours - normal saline 100 mL an hour - amiodarone 200 mg by mouth every 6 hours - digoxin 0.25 mg IV one dose - lactulose 15 mL by mouth twice a day - metoprolol 25 mg by mouth one dose - midodrine 5 mg by mouth every 8 hours ASSESSMENT: A 64-year-old male with HCV cirrhosis admitted this time with metabolic encephalopathy, acute oliguric renal failure, large left-sided pleural effusion and lactic acidosis. PLAN: 1. Acute oliguric renal failure. Multifactorial at this time. Etiology is not known. However, given possibility of a malignancy in the liver or intra-abdominal, it might be playing a role. Given the patient's emaciated state with severe muscle wasting, I think this creatinine is overestimating patient's GFR. The patient's BUN is very high, 188. Unfortunately, patient is unable to give me any consent at this time. I am going to get an ultrasound of the liver to rule out malignancy in the liver. If there is a malignancy, I would not offer any dialysis to this patient. However, if the liver ultrasound rules out the malignancy, I would try to do rescue dialysis, 1-2 sessions, to see if that makes any difference in the patient's encephalopathy. The patient is frankly uremic at this time. 2. Metabolic acidosis. It is secondary to renal failure. No urgent need of bicarbonate administration at this time. 3. HCV cirrhosis and possible liver mass. The patient is not a candidate for IV contrast dye at this time because of renal failure and probably he will not be able to lie down in the MRI a long time because he has metabolic encephalopathy. I am going to start with the ultrasound of the liver. Primary team has already ordered AFP tumor markers, carcinoembryonic antigen and CA19-9. The patient already has AST and ALT and alkaline phosphatase, which are elevated, and he has been started on lactulose for high ammonia levels. 3. Persistent leukocytosis. Unknown etiology. The patient has retroperitoneal lymphadenopathy as well. Primary team is planning to do a lymph node biopsy, CAT scan guided, on Monday. He is empirically being covered with vancomycin and meropenem. Meropenem dose is adequate for his renal function. 4. Lactic acidosis. The patient has high LDH and high lactic acidosis as well. He is getting gentle IV fluid hydration. 5. Ascites. The patient does not have large volume ascites. He does not need any therapeutic tap. However, if he gets a diagnostic tap to rule out spontaneous bacterial peritonitis (SBP) versus intraperitoneal carcinomatosis, that would be helpful 6. Generalized papular rash. Unknown etiology at this time. Primary team is checking the HIV. There is remote possibility that it might be metastatic lesions from some primary tumor in the abdomen. Thank you for involving us in the management of this patient. I shall be happy to follow the patient along with you tomorrow morning. The patient overall has a very poor prognosis. It looks like he has some intra-abdominal malignancy which is undiagnosed at this time.
[2019-08-17 19:31] LABS: PHOSPHORUS LEVEL 5.2 MG/DL (2.5-4.9)
[2019-08-17 19:39] LABS: URIC ACID 19.8 MG/DL (3.5-7.2)
[2019-08-17] MEDS ORDERED: NS 500 ML IV ONE ×2 (20:15→20:30)
[2019-08-18] VITALS (8 sets, daily range): BP systolic 79–99; BP diastolic 43–63
[2019-08-18] MEDS: MEROPENEM INJ 1 GM in IV 1 EA IV SCH ×2 (00:11→11:13)
[2019-08-18] MEDS ORDERED: AMIODARONE HCL 150 MG in IV 1 EA IV ONE (00:45)
[2019-08-18 01:04] LABS: ABG BASE EXCESS -9.3 (-2.0-2.0); ABG HCO3 14.5 MEQ/L (22.0-26.0); ABG O2 SATURATION 98.4 % (95.0-99.0); ABG PARTIAL PRESSURE CO2 27.2 mmHg (35.0-45.0); ABG PARTIAL PRESSURE O2 128.8 mmHg (75.0-100.0); ABG STANDARD HCO3 17.2 MEQ/L (22.0-26.0); ABG TOTAL CO2 15.3 MEQ/L (23.0-31.0); ABG pH (ARTERIAL) 7.345 UNITS (7.350-7.450)
[2019-08-18] MEDS: LACTULOSE 20 GM/30 ML SYRUP UD PO SCH ×2 (02:48→09:00)
[2019-08-18] MEDS: AMIODARONE 200 MG TAB (PACERONE) PO SCH ×3 (02:49→12:00)
[2019-08-18] MEDS: NS 1,000 ML IV SCH ×2 (03:53→11:13)
[2019-08-18 05:26] LABS: HEMATOCRIT 47.2 % (42.0-52.0); HEMOGLOBIN 15.4 g/dl (13.5-17.5); MEAN CORPUSCULAR HEMOGLOBIN 28.3 pg (27.0-33.0); MEAN CORPUSCULAR HGB CONC 32.6 g/dl (32.0-36.5); MEAN CORPUSCULAR VOLUME 86.6 fl (80.0-96.0); PLATELET COUNT, AUTOMATED 103 10^3/uL (150-450); RED BLOOD COUNT 5.45 10^6/uL (4.30-6.10); WHITE BLOOD COUNT 19.7 10^3/uL (4.0-10.0)
[2019-08-18 05:57] LABS: EOSINOPHILS 3 % (0-3); METAMYELOCYTES 1 % (0-0); NEUTROPHILS 92 % (28-66)
[2019-08-18 05:58] LABS: ANISOCYTOSIS 1+
[2019-08-18 05:59] LABS: PLATELET ESTIMATE DECREASED (NORMAL); POLYCHROMASIA 1+
[2019-08-18] MEDS: SLF 3 ML SYR IV SCH ×2 (06:00→15:53)
[2019-08-18 06:03] LABS: CALCIUM LEVEL 9.6 MG/DL (8.8-10.2); CREATININE FOR GFR 2.08 MG/DL (0.70-1.30); GLOMERULAR FILTRATION RATE 34.4 (>49); POTASSIUM SERUM 5.3 MEQ/L (3.5-5.1)
--- NOTE | 2019-08-18 07:04 | REPVR ---
PROCEDURE INFORMATION: Exam: US Abdomen Limited, Right Upper Quadrant Exam date and time: 08/18/2019 6:37 AM Age: 64 years old Clinical indication: Abnormal findings; Abnormal radiologic finding of the abdomen; Radiologic exam and body structure: CT abd/ CT chest; Additional info: Hcv cirrhosis, mass left lobe? TECHNIQUE: Imaging protocol: Real-time ultrasound of the abdomen with image documentation. Examination was focused on the right upper quadrant. COMPARISON: CT ABD/PEL W/PO CONTRAST ONLY 08/15/2019 9:21 AM FINDINGS: Liver: Large mass in the left lobe of the liver measuring 4.9 x 5.8 x 6.8 cm. Nodular margin of the liver representing cirrhosis. Gallbladder: No gallstones. Sludge. Gallbladder wall is thickened measuring 4.9 mm. Common bile duct: Common bile duct is normal measuring 3.1 mm. Pancreas: Pancreas is not well seen secondary to overlying bowel gas shadow. Right kidney: Right kidney is unremarkable measuring 10.6 cm. Intraperitoneal space: Large ascites. Lymph nodes: Numerous upper abdominal lymph nodes are seen, largest 1 is at the ayesha pedis measuring 3.0 x 1.7 x 2.5 cm. IMPRESSION: Large mass in the left lobe of the liver measuring 4.9 x 5.8 x 6.8 cm. Nodular margin of the liver representing cirrhosis. 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 Moderate ascites. No gallstones. Sludge. Gallbladder wall is thickened measuring 4.9 mm. Findings may be secondary to ascites. Other findings as described above. Electronically signed by: Caty Daly On 08/18/2019 07:03:51 AM
--- NOTE | 2019-08-18 07:25 | RO ---
DATE OF PROCEDURE: 08/17/2019 PREPROCEDURE DIAGNOSIS: Left pleural effusion. POSTPROCEDURE DIAGNOSIS: Left pleural effusion. PROCEDURE: SURGEON: Stanton Richards MD [employer] FLOORING: ANESTHESIA: FINDINGS: Chest was eluded of 1600 mL of clear olga fluid. Towards the end of the drainage, there were some cloudy specks suspended in the fluid. DESCRIPTION OF PROCEDURE: Under satisfactory moderate sedation achieved with 2 mg of Versed, patient was prepped and draped in the usual sterile fashion. Incision was made in the mid axillary line at the level of the nipple, and a tunnel was created into the chest without difficulty. A #24 chest tube was placed, and the above-findings were noted. Specimens were sent for chemistries, hematologies, cytologies, and bacteriologies. Tube was secured to the chest wall with #2 Tevdek suture. Because of the patient's liver failure, I decided to reverse his Versed with 0.2 mg of Romazicon. Chest x-ray is pending.
[2019-08-18] MEDS ORDERED: HumuLIN R (REGULAR) INSULIN (NovoLIN R) **100U/ML** PER UNIT IV STA (07:41)
[2019-08-18] MEDS ORDERED: DEXTROSE 50% 50 ML SYRINGE IV STA (07:41)
[2019-08-18] MEDS: DOXYCYCLINE HYCLATE 100 MG in D5W MINI-BAG PLUS 100 ML IV SCH (07:50)
[2019-08-18] MEDS ORDERED: ALBUTEROL SULFATE 2.5 MG/0.5 ML INH NEB SOLN NEB ONE (08:00)
[2019-08-18] MEDS ORDERED: CALCIUM GLUCONATE 1,000 MG in D5W MINI-BAG PLUS 100 ML IV ONE (08:00)
[2019-08-18] MEDS: MIDODRINE 5 MG TAB PO SCH ×2 (08:00→12:00)
[2019-08-18 09:01] LABS: CALCIUM LEVEL 9.3 MG/DL (8.8-10.2); CREATININE FOR GFR 2.16 MG/DL (0.70-1.30); GLOMERULAR FILTRATION RATE 32.9 (>49); MAGNESIUM LEVEL 2.6 MG/DL (1.8-2.4); POTASSIUM SERUM 5.2 MEQ/L (3.5-5.1)
--- NOTE | 2019-08-18 10:06 | REP ---
REASON: Followup. COMPARISON: Yesterday. The technique utilized in obtaining the radiograph has magnified the cardiac silhouette and accentuated the interstitial markings. The discoid opacity seen previously in the left lung is smaller and less dense. Left-sided thoracotomy tube is unchanged. Lung odonnell are hypoexpanded. There might be a developing opacity in the right lower lobe, at least partially obscured by overlying meat loiner leads. Pleural angles are unchanged. The subtle left retrocardiac opacities are also essentially unchanged. There is no change in the osseous structures. IMPRESSION: Possible developing right lower lobe pneumonia. This should be correlated clinically with followup. Other findings as described above. Electronically Signed by Andres Gibbs DO 08/18/2019 10:46 A
[2019-08-18] MEDS ORDERED: NS 1,000 ML IV ONE ×2 (11:00→11:45)
--- NOTE | 2019-08-18 12:02 | IPN ---
DATE: 08/18/2019 Mr. Mccormick has been moved into the non-COVID intensive care unit in the PACU for hypotension last night. He is still fairly uncommunicative and confused. He is no complaining of any pain however. His vital signs show a T-max of 98.9 with a heart rate that ranging between 96 and 123 in atrial fibrillation, respiratory rate of 18-19 without the use of accessory muscles who is 98% saturated now on 6 liters nasal cannula, and whose blood pressure is ranging between 82/64 to most recently 93/56. He has been given a 1 liter bolus today of normal saline. His intake and output the past 24 hours has been recorded as 3420 in and 2520 out for a positivity of 900 mL. He has put out 1910 mL out the chest tube yesterday and 220 in the last 10 hours. It is serous fluid. He continues on meropenem and doxycycline along with vancomycin and ceftriaxone in addition to amiodarone for his atrial fibrillation. On physical examination I can barely lean his forward but his lungs sounds are equal on either side. I hear some scattered rhonchi. Percussion note is full to the diaphragm. Cardiac exam shows irregular rate and rhythm without murmurs, clicks, gallops or rubs. PMI is in the fifth intercostal space in the midclavicular line. S1 and S2 are normal. Abdomen is diffusely tender but soft without guarding. Bowel sounds are present but hypoactive. I cannot test for CVA tenderness as he cannot sit forward, and I do not appreciate hepatomegaly secondary to his abdominal discomfort. His abdomen does seem full. I cannot test for a fluid wave. Extremities show no pretibial edema. No calf tenderness. No differential swelling of the upper extremities. Skin is warm, dry and perfused without cyanosis or mottling including that of the nail beds and the knees. He still has the diffuse papular blistering rash all over his body. Neck is supple. There is no jugular venous distention. No subcutaneous emphysema. Trachea is midline. Mouth shows his mucous membranes to be dry with a dry brownish coating over his tongue. Lips and commissures are without lesions. Eyes show his pupils to be equal and reactive. Extraocular motions are intact. Sclera are icteric. Neuro shows gross motor and gross sensation intact. Psychiatric shows him to be noncommunicative, probably confused, but able to follow command and seemingly attentive. His white count today is down to 19.7 with a hemoglobin and hematocrit of 15.4 and 47.2, with a platelet count of 103 down from 125 yesterday. His differential shows 92% neutrophils, 4% bands, 1 metamyelocyte. There are no lymphocytes. Chemistries show sodium 148 with a potassium of 5.2 with a carbon dioxide of 14. His BUN and creatinine are 179 and 2.16. Glucose is 104, calcium is 9.3. His albumin yesterday was 1.5 and I calculated his calcium correction to be over 12. His pleural fluid has come back with a pH of 7.55, glucose of 135, and a total protein of 3.1 with a corresponding serum total protein of 5.5 and LDH of 271 with a corresponding LDH of 1163. This looks, by LDH criteria, it looks to be a transudative effusion, however by total protein criteria it looks to be exudative. It is normoglycemic. He has 538 white cells, 82% are mononuclear, and 17% are neutrophils. It may be a malignant effusion with the mononuclear lymphocytes increased. HIV antigen antibodies are still pending. Blood gases today show a pH of 7.34, pCO2 of 27, pO2 of 128 with a base excess of -9.3. This looks to be a respiratorily compensated metabolic acidosis. IMPRESSION: 1. Left pleural effusion draining with a chest tube. 2. Probable liver cirrhosis. 3. Blistering rash, either molluscum contagium or pemphigus. 4. History of hepatitis C. 5. Sepsis with lactic acidosis. 6. Acute kidney injury and renal failure. 7. Prior alcohol abuse. 8. Tobacco abuse. 9. Syncope by history. 10. Hypothyroidism by history. 11. Hypertension. 12. Hypercalcemia. 13. Hypodense liver mass, left lobe of liver. PLAN AND DISCUSSION: As far as the chest tube is concerned, I suspect it is secondary to his ascitic fluid. His chest x-ray shows the lung fully expanded to the chest wall. As compared to yesterdays, there may be a small amount of rounded atelectasis in the right lower lobe. It is not however impressive, and it certainly does not look like an infiltrate. I do not think he has pneumonia. All cultures are negative so far and there are no organisms seen on gram stain in the pleural fluid. This may be a spontaneous bacterial peritonitis secondary to his cirrhosis. He does need a lot more fluid. We have to consider him quite septic with a metabolic lactic acidosis. I will continue his chest tube as he is draining much to much to remove it.
[2019-08-18] MEDS ORDERED: ATROPINE SULFATE 1% OP SOLN 2 ML BTL SL PRN (12:30)
[2019-08-18] MEDS ORDERED: LORazepam 2 MG/ML VIAL (J2060) IV PRN (12:30)
[2019-08-18] MEDS ORDERED: HYOSCYAMINE SULFATE 0.125 MG SUBL TABLET PO PRN (12:30)
[2019-08-18] MEDS ORDERED: MORPHINE SULFATE ORAL SOLN 10 MG/5 ML UD SL PRN (12:30)
[2019-08-18] MEDS ORDERED: ONDANSETRON 4MG/2ML VIAL IV PRN (12:30)
[2019-08-18] MEDS ORDERED: SCOPOLAMINE 1MG TRANSDERMAL PATCH TOP PRN (12:30)
--- NOTE | 2019-08-18 12:51 | IPNPDOC ---
Text Note Date of Service The patient was seen on 08/18/19. NOTE Subjective: Patient continues to be confused and lethargic. General: Cachectic, ill looking male VITAL SIGNS: Please see below. HEENT: NCAT, icterus, IMTIAZ NECK: supple, no JVD CARDIOVASCULAR EXAMINATION: NS1S2 RESPIRATORY EXAMINATION: Moderate rhonchi bilaterally. Chest tube in place ABDOMINAL EXAMINATION: Distended, nontender EXTREMITIES: no cyanosis, clubbing, edema SKIN: Papular rash over his chest NEUROLOGICAL EXAMINATION: Nonfocal, moves 4 limbs, no nuchal rigidity Patient is 64 years old male with past history of hypertension, hypothyroid, hepatitis C treated in 2003 and 2011, cirrhosis of the liver presented hospital with sepsis and altered mental status. Patient was found to have left lung pleural effusion, moderate ascites and leukocytosis. Also patient developed atrial fibrillation with rapid ventricular rate, amiodarone started. During hospital stay patient developed hepatorenal syndrome with progressive acute kidney failure. Also patient was diagnosed with advanced liver cancer. Patient has very poor prognosis. According to family wishes patient was transferred to [facility] status on 08/18/19 Diagnosis: Sepsis Lactic acidosis Large left pleural effusion Atrial fibrillation with rapid ventricular rate Hypotension CECI Dehydration Ascites cirrhosis Liver cancer Intraperitoneal lymphadenopathy Elevated liver enzymes Severe Protein calorie malnutrition Papular rash Metabolic encephalopathy VS,Fishbone, I+O VS, Fishbone, I+O Laboratory Tests 08/17/19 13:01 08/18/19 05:12 08/18/19 08:04 Vital Signs Date Time Temp Pulse Resp B/P (MAP) Pulse Ox O2 Delivery O2 Flow Rate FiO2 08/18/19 11:32 116 82/47 (59) 96 08/18/19 08:38 98.8 19 Nasal Cannula 6.0 I&O- Last 24 Hours up to 6 AM 08/18/19 06:00 Intake Total 3420 ml Output Total 2740 ml Balance 680 ml DIETER HOLGUIN DO Aug 18, 2019 12:51
[2019-08-18] MEDS: MORPHINE 2 MG/ML 1ML VIAL (J2270) IV PRN (16:20)
--- NOTE | 2019-08-18 19:39 | IPN ---
DATE: 08/18/2019 SUBJECTIVE: The patient was seen and examined at the bedside today afternoon in the intensive care unit (ICU). The patient was transferred to ICU yesterday because of hypotension, persistent leukocytosis, lactic acidosis and possible sepsis. I have reviewed the patient's ultrasound that was done today morning that showed a large mass in the left lobe of the liver, most likely hepatocellular carcinoma. I discussed the imaging with the on-call radiologist as well. The patient is slightly more awake today as compared with yesterday; however, he is persistently hypotensive. There is no improvement in the renal function. Renal function continues to get worse. The patient is actually hyperkalemic as well and he continues to be oliguric. OBJECTIVE: VITAL SIGNS: Temperature is 98.8 degrees Fahrenheit, blood pressure 92/51, pulse is 120, respiratory rate of 19, saturating 98% on nasal cannula at 6 liters. INTAKE AND OUTPUT: Urine output recorded is only 100 mL since overnight. Drainage from the left-sided chest tube is 220 mL. Weight in the bed scale is not available. PHYSICAL EXAMINATION: GENERAL: The patient is more awake and otherwise not oriented. He follows very few commands, laying in the bed, emaciated, with temporal wasting. HEAD AND NECK EXAM: Head is atraumatic, but he has bitemporal wasting. Mucous membranes are moist. Neck is supple. There is no jugular venous distention (JVD). CARDIOVASCULAR: S1, S2. Tachycardia. No edema of the bilateral lower extremities. RESPIRATORY: Decreased breath sounds at the bases, especially on the left side. He has a catheter in the left pleural cavity. ABDOMEN: Soft. Moderate amount of ascites was noted. He has enlarged, tender nodular liver. Left lobe of the liver is palpable. GENITOURINARY: He has an indwelling Blanchard catheter. MUSCULOSKELETAL: No clubbing or cyanosis. Pulses are 2+. CENTRAL NERVOUS SYSTEM (PREPAROLE COUNSELING AIDE): The patient is laying in the bed, oriented times one only. SKIN: The patient has a pustular and papular rash all over the skin. LABORATORY REVIEW: Complete blood count (CBC) showed a WBC of 19.7, hemoglobin 15.4, platelets of 103. Arterial blood gas (ABG) done today morning showed a pH of 7.34, pCO2 of 27, pO2 128, bicarbonate is 14.5, oxygen saturation is 98%. Basic metabolic panel (BMP) done today morning showed sodium 148, potassium 5.2, chloride 119, bicarbonate is 14, BUN 179, creatinine is 2.1, calcium 9.3, magnesium 2.6. Uric acid done yesterday was 19.8. Phosphorus was 5.2. IMAGING STUDIES: An ultrasound of the liver was done today morning which showed a large mass in the left lobe of the liver measuring 4.9 x 5.8 x 6.8 cm and nodular margins of the liver represent cirrhosis. Findings suggest hepatocellular carcinoma. Contrast-enhanced imaging, including CAT scan or MRI, was recommended. CURRENT INPATIENT MEDICATIONS: The patient's medications were all reviewed by myself in the morning. He is on intravenous (IV) antibiotics. He was given IV fluid boluses overnight because of hypotension. No other change in medications today as compared with yesterday. ASSESSMENT AND PLAN: 1. Acute renal failure. The patient has acute oliguric renal failure with a persistent uremia, hyperuricemia, hyperphosphatemia. He has a large mass in the left lobe of the liver. At this point, given the patient's hepatocellular cancer and renal failure, I would not offer hemodialysis to this patient. In my opinion, doing hemodialysis in this patient would actually prolong his misery. The patient is not salvageable. is eminent. I recommend getting palliative care and hospice on board and making this patient comfort measures only. 2. Mass in the left lobe of the liver. The patient has history of hepatitis C virus (HCV) cirrhosis. He has large mass in the left lobe of the liver, which is outside the Juan Luis criteria because largest dimensional is more than 6 cm. Primary team is discussing the goals of care with family members and the patient will be most likely made comfort measures only. 3. Persistent leukocytosis. The patient is getting empiric antibiotics at this time. DISPOSITION: The patient is likely being made comfort measures only, so no hemodialysis for this patient. Nephrology service is going to sign off at this moment. Please call nephrology service for any help in the management of this patient during this hospitalization. KAREN
[2019-08-19] MEDS: SLF 3 ML SYR IV SCH ×3 (03:42→13:00)
[2019-08-19] MEDS: MORPHINE 2 MG/ML 1ML VIAL (J2270) IV PRN ×3 (03:42→17:24)
[2019-08-19] MEDS ORDERED: NS 1,000 ML IV SCH (17:15)
--- NOTE | 2019-08-20 17:01 | DS.PDOC ---
Discharge Summary General Date of Admission Aug 14, 2019 at 16:41 Date of Discharge 08/20/19 Discharge Summary PROCEDURES PERFORMED DURING STAY: [None]. ADMITTING DIAGNOSES: Sepsis Lactic acidosis Large left pleural effusion Atrial fibrillation with rapid ventricular rate Hypotension CECI Dehydration Ascites Intraperitoneal lymphadenopathy Elevated liver enzymes Cirrhosis Severe Protein calorie malnutrition Papular rash Metabolic encephalopathy Acute oliguric renal failure liver mass Persistent leukocytosis Generalized papular rash Prior alcohol abuse. DISCHARGE DIAGNOSES: Sepsis Lactic acidosis Large left pleural effusion Atrial fibrillation with rapid ventricular rate Hypotension CECI Dehydration Ascites Intraperitoneal lymphadenopathy Elevated liver enzymes Cirrhosis Severe Protein calorie malnutrition Papular rash Metabolic encephalopathy Acute oliguric renal failure liver mass Persistent leukocytosis Generalized papular rash Prior alcohol abuse. COMPLICATIONS/CHIEF COMPLAINT: Pneumonia,Atrial Fibrillation With Rapid Ventricul. HISTORY OF PRESENT ILLNESS: Mr. Jass Mccormick is a 64-year-old male with a past medical history of hepatitis C virus (HCV) cirrhosis. He was brought to the emergency room (ER) by EMS. Apparently, the patient's family friend called EMS for as welfare check and when they went to his home, he was found on the floor. On arrival to the emergency room after initial resuscitation, the patient reported that he was feeling dizzy and weak and he had fallen to the floor and he was unable to get up. Later investigation showed that the patient also had a large left-sided pleural effusion. He also got a CAT scan of the abdomen done, which showed cirrhosis of the liver with a possible mass in the left lobe of the liver. He was also found to have intra-abdominal and retroperitoneal adenopathy. He had lactic acidosis. His creatinine on arrival was 1.7, with a BUN of 168. Patient's renal function did not show any signs of improvement HOSPITAL COURSE: During hospital course patient has been treated with antibiotics for sepsis with unknown source, most likely SBP or pneumonia. Also patient developed acute oliguric renal failure, multifactorial most likely due to malignancy and hepatorenal syndrome. Patient was not candidate for dialysis due to advanced intra-abdominal malignancy most likely liver cancer given large liver mass on the imaging study. Also patient developed metabolic acidosis secondary to uremia and possible infection. Patient was found to have large pleural effusion most likely due to malignancy or infection, chest tube was placed. During hospital stay patient continues to be encephalopathic despite treatment. Subsequently patient developed persistent uremia, hyperuricemia, hyperphosphatemia. After discussion with family patient was transferred to [facility]. Patient on 08/20/19 LABORATORY DATA: Please see below. IMAGING: PROCEDURE INFORMATION: Exam: US Abdomen Limited, Right Upper Quadrant Exam date and time: 08/18/2019 6:37 AM Age: 64 years old Clinical indication: Abnormal findings; Abnormal radiologic finding of the abdomen; Radiologic exam and body structure: CT abd/ CT chest; Additional info: Hcv cirrhosis, mass left lobe? TECHNIQUE: Imaging protocol: Real-time ultrasound of the abdomen with image documentation. Examination was focused on the right upper quadrant. COMPARISON: CT ABD/PEL W/PO CONTRAST ONLY 08/15/2019 9:21 AM FINDINGS: Liver: Large mass in the left lobe of the liver measuring 4.9 x 5.8 x 6.8 cm. Nodular margin of the liver representing cirrhosis. Gallbladder: No gallstones. Sludge. Gallbladder wall is thickened measuring 4.9 mm. Common bile duct: Common bile duct is normal measuring 3.1 mm. Pancreas: Pancreas is not well seen secondary to overlying bowel gas shadow. Right kidney: Right kidney is unremarkable measuring 10.6 cm. Intraperitoneal space: Large ascites. Lymph nodes: Numerous upper abdominal lymph nodes are seen, largest 1 is at the ayesha pedis measuring 3.0 x 1.7 x 2.5 cm. IMPRESSION: Large mass in the left lobe of the liver measuring 4.9 x 5.8 x 6.8 cm. Nodular margin of the liver representing cirrhosis. 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 Moderate ascites. No gallstones. Sludge. Gallbladder wall is thickened measuring 4.9 mm. Findings may be secondary to ascites. Other findings as described above. Electronically signed by: Caty REASON: Possible liver mass. No prior abdominal or pelvic CTs for comparison. Prior CT of the chest obtained yesterday showed ascites in the imaged upper abdomen and the large left pleural effusion. The lung bases are unchanged. Note is again made of the large left pleural effusion with probable compressive atelectatic change in the left lower lobe. As mentioned in the prior chest CT report, pneumonia and/or mass lesion cannot be ruled out. There is a moderate amount of ascites. There is a micronodular hepatic surface. There is an abnormal caudate to left lobe of the liver ratio. There is pericholecystic fluid consistent with ascites. No gross mass is seen, however, intravenous contrast was withheld and I cannot rule out a mass particularly in the left lobe of the liver. The spleen and pancreas have an unremarkable appearance although seen in a limited fashion. There is bulky paraaortic adenopathy and there is adenopathy throughout the small bowel mesentery. There is bilateral circumferential adrenal gland thickening. There is no evidence of a gross renal mass or hydronephrosis. There is no evidence of intestinal obstruction. CT PELVIS: There is free fluid in the pelvis. There is no evidence of free air. There is urinary bladder distention. There is no evidence of gross pelvic adenopathy. Bone window technique throughout the examination shows the osseous structures to be within normal limits for the patient's age. IMPRESSION: 1. Lung base findings as described above, not significantly changed from yesterday. 2. Evidence to suggest cirrhosis of the liver with other liver findings as described above. If a liver mass is of clinical concern then I would suggest either a contrast enhanced examination or a liver MRI. 3. Moderate ascites. 4. Intra-abdominal and retroperitoneal adenopathy as described above. The findings suggest an infiltrative process such as lymphoma or leukemia. Certainly, other etiologies exist. 5. Other findings as described above. PROGNOSIS: ACTIVITY: [As tolerated]. DIET: DISCHARGE PLAN: DISPOSITION: 20 . DISCHARGE INSTRUCTIONS: 1. . ITEMS TO FOLLOWUP ON ON OUTPATIENT: 1. . DISCHARGE CONDITION: [Stable]. TIME SPENT ON DISCHARGE: Greater than minutes. Vital Signs/I&Os Vital Signs Date Time Temp Pulse Resp B/P (MAP) Pulse Ox O2 Delivery O2 Flow Rate FiO2 08/19/19 13:00 20 08/18/19 11:32 116 82/47 (59) 96 08/18/19 08:38 98.8 Nasal Cannula 6.0 I&O- Last 24 Hours up to 6 AM 08/20/19 06:00 Intake Total 0 ml Output Total 0 ml Balance 0 ml Microbiology Microbiology 08/17/19 Acid Fast Stain, Received Pending 08/17/19 Mycobacterial Culture, Received Pending 08/17/19 Fungal Smear, Received Pending 08/17/19 Fungal Culture, Received Pending 08/17/19 Gram Stain - Final, Complete 08/17/19 Anaerobic Culture - Final, Complete 08/17/19 Body Fluid Culture - Final, Complete 08/17/19 Blood Culture - Preliminary, Resulted No Growth after 72 hours. All specime... 08/14/19 Respiratory Virus Panel (PCR) ([facility]) - Final, Complete Discharge Medications Unable to Obtain Active Prescriptions or Reported Meds Allergies Coded Allergies: No Known Allergies (Unverified , 08/14/19) DIETER HOLGUIN DO Aug 20, 2019 17:01
== END 2019-08-19 20:47 | disposition expired | DRG 720 ==
LOC: EDBD 14:13 → M ED 15:59 → M ED INP 16:41 → ENRESERVDT 17:19 → ENRESERVTM 17:19 → ENRESERVDT 19:16 → ENRESERVTM 19:16 → ENRESERVDT 22:23 → M PCU 22:55 → M RR INP 08-17 21:13 → M MSPAV 08-18 13:37
PROVIDERS: ADMIT Internal Medicine Nephrology; ATTEND Internal Medicine
DX: A41.9 Sepsis, unspecified organism (principal); G93.41 Metabolic encephalopathy; E43 Unspecified severe protein-calorie malnutrition; N17.9 Acute kidney failure, unspecified; J91.0 Malignant pleural effusion; E87.2 Acidosis; J18.9 Pneumonia, unspecified organism; C22.0 Liver cell carcinoma; K74.60 Unspecified cirrhosis of liver; R18.8 Other ascites; I48.0 Paroxysmal atrial fibrillation; I48.92 Unspecified atrial flutter; E83.52 Hypercalcemia; E86.0 Dehydration; B08.1 Molluscum contagiosum; B18.2 Chronic viral hepatitis C; Z51.5 Encounter for palliative care; R29.6 Repeated falls; F17.200 Nicotine dependence, unspecified, uncomplicated; R33.9 Retention of urine, unspecified; E03.9 Hypothyroidism, unspecified; Z79.899 Other long term (current) drug therapy; R65.20 Severe sepsis without septic shock